=== PATIENT | female | born 1935 | race Caucasian/White ===

== ENCOUNTER 2018-12-25 16:12 | Emergency (ER) | payer MEDICARE, MEDICAID ==
[~2018-12-25] VITALS: Ht 154.9 cm; Wt 100.0 kg
[2018-12-25] MEDS ORDERED: SODIUM CHLORIDE 0.9% 1,000 ML IV ONE (16:28)
[2018-12-25] MEDS ORDERED: LORAZEPAM 0.5MG TABLET PO ONE (16:30)
[2018-12-25 19:01] LABS: BASOPHILS % 0.5 % (0.0-2.0); EOSINOPHILS % 0.8 % (0.0-5.0); HEMATOCRIT. 40.1 % (36.0-48.0); HEMOGLOBIN. 13.5 g/dL (12.0-16.0); LYMPHOCYTES % 32.9 % (20.0-50.0); MEAN CORPUSCULAR HEMOGLOBIN 33.5 pg (28.0-32.0); MEAN CORPUSCULAR VOLUME 99.3 fL (81.0-99.0); MEAN PLATELET VOLUME 7.7 fl (7.4-10.4); MONOCYTES % 12.3 % (2.0-8.0); NEUTROPHILS % 53.5 % (40.0-76.0); PLATELET 269 x1000/uL (130-400); RED BLOOD CELL COUNT 4.04 mill/uL (4.2-5.4); RED CELL DISTRIBUTION WIDTH 14.4 % (11.6-14.6)
[2018-12-25 19:13] LABS: CHLORIDE 115 mEq/L (98-107)
[2018-12-25 19:17] LABS: ETHANOL BLOOD < 10 mg/dL
[2018-12-25 19:51] LABS: CLARITY URINE CLEAR (CLEAR); COLOR URINE YELLOW (YELLOW); KETONES URINE NEGATIVE (NEGATIVE); LEUKOCYTE ESTERASE URINE TRACE (NEGATIVE); NITRITE URINE NEGATIVE (NEGATIVE); OCCULT BLOOD URINE NEGATIVE (NEGATIVE); PROTEIN URINE NEGATIVE (NEGATIVE); SPECIFIC GRAVITY URINE 1.003 (1.005-1.030); UROBILINOGEN URINE 0.2 E.U./dL (0.2-1.0)
[2018-12-25 20:14] LABS: *AMPHETAMINES SCREEN URINE NEGATIVE (NEGATIVE); *BARBITURATES SCREEN URINE NEGATIVE (NEGATIVE); *BENZODIAZEPINES SCREEN URINE NEGATIVE (NEGATIVE); *COCAINE SCREEN URINE NEGATIVE (NEGATIVE); METHADONE URINE SCREEN NEGATIVE (NEGATIVE)
[2018-12-25 20:15] LABS: CANNABINOID URINE SCREEN NEGATIVE (NEGATIVE); OPIATES URINE SCREEN NEGATIVE (NEGATIVE)
[2018-12-25 20:17] LABS: PHENCYCLIDINE URINE SCREEN NEGATIVE (NEGATIVE)
[2018-12-25 20:30] VITALS: BP 173/67
== END 2018-12-25 20:44 | disposition home or self-care (01) ==
LOC: ER 16:12
DX: F41.1 Generalized anxiety disorder (principal); I10 Essential (primary) hypertension; E78.00 Pure hypercholesterolemia, unspecified; E05.90 Thyrotoxicosis, unspecified without thyrotoxic crisis or storm
CPT/HCPCS: 36415; 71045; 80053; 80305; 80320; 81003; 84443; 85025; 93005; 99284; J7030; G0480

== ENCOUNTER 2021-11-23 00:17 | Emergency (ER) | payer MEDICARE, MEDICAID ==
[~2021-11-23] VITALS: Ht 162.6 cm; Wt 55.0 kg
[~2021-11-23 00:17] MED LIST: LEVO250T74 PO; TOPUD PO
[2021-11-23] MEDS ORDERED: BACITRACIN ZINC OINT UDPKT TOP ONE (00:30)
[2021-11-23] MEDS ORDERED: TETANUS, DIPHTHERIA, PERTUSSIS VAC/PF 0.5ML (>10YR OLD) IM ONE (00:30)
[2021-11-23] MEDS ORDERED: LIDOCAINE HCL/PF 1% 10 MG/ML 5ML VIAL INFIL ONE (00:30)
[2021-11-23 05:05] VITALS: BP 114/68
== END 2021-11-23 05:05 | disposition home or self-care (01) ==
LOC: ER 00:17
DX: S01.81XA Laceration without foreign body of other part of head, initial encounter (principal); W18.39XA Other fall on same level, initial encounter; Y93.89 Activity, other specified; Y92.89 Other specified places as the place of occurrence of the external cause; Y99.8 Other external cause status; M25.551 Pain in right hip; F03.90 Unspecified dementia, unspecified severity, without behavioral disturbance, psychotic disturbance, mood disturbance, and anxiety; E11.9 Type 2 diabetes mellitus without complications; E78.00 Pure hypercholesterolemia, unspecified; I10 Essential (primary) hypertension; E05.90 Thyrotoxicosis, unspecified without thyrotoxic crisis or storm
CPT/HCPCS: 12011; 70450; 72125; 72170; 73562; 90471; 90715; 99284; J3490

== ENCOUNTER 2021-11-28 13:35 | Emergency (ER) | payer MEDICARE, MEDICAID ==
[~2021-11-28] VITALS: Ht 157.5 cm; Wt 75.0 kg
[~2021-11-28 13:35] MED LIST changes: +LEVO250T43 PO; -LEVO250T74 PO
[2021-11-28 13:42] VITALS: BP 134/63
== END 2021-11-28 16:13 | disposition left against medical advice (07) ==
LOC: ER 13:35
DX: Z53.21 Procedure and treatment not carried out due to patient leaving prior to being seen by health care provider (principal)

== ENCOUNTER 2022-04-15 21:39 | Emergency (ER) | payer MEDICARE, MEDICAID ==
[~2022-04-15] VITALS: Ht 154.9 cm; Wt 67.0 kg
[~2022-04-15 21:39] MED LIST changes: -LEVO250T43 PO; +LEVO250T74 PO
[2022-04-15 21:43] VITALS: BP 135/82
== END 2022-04-16 03:05 | disposition left against medical advice (07) ==
LOC: ER 21:39
DX: R09.89 Other specified symptoms and signs involving the circulatory and respiratory systems (principal); I10 Essential (primary) hypertension; E11.9 Type 2 diabetes mellitus without complications; F03.90 Unspecified dementia, unspecified severity, without behavioral disturbance, psychotic disturbance, mood disturbance, and anxiety; E78.00 Pure hypercholesterolemia, unspecified; E05.90 Thyrotoxicosis, unspecified without thyrotoxic crisis or storm
CPT/HCPCS: 70490; 71250; 99284

== ENCOUNTER 2023-12-05 02:07 | Inpatient (IN) | payer MEDICARE, MEDICAID ==
[~2023-12-05] VITALS: Ht 147.3 cm; Wt 60.8 kg
[~2023-12-05 02:07] MED LIST changes: -LEVO250T74 PO; +SULF1TAB48 PO
[2023-12-05 02:45] LABS: BASOPHILS % 0.6 % (0.0-2.0); EOSINOPHILS % 1.2 % (0.0-5.0); HEMATOCRIT. 42.2 % (36.0-48.0); HEMOGLOBIN. 14.2 g/dL (12.0-16.0); LYMPHOCYTES % 43.7 % (20.0-50.0); MEAN CORPUSCULAR HEMOGLOBIN 31.9 pg (28.0-32.0); MEAN CORPUSCULAR HGB CONC 33.7 g/dL (31.0-37.0); MEAN CORPUSCULAR VOLUME 94.7 fL (81.0-99.0); MEAN PLATELET VOLUME 7.3 fl (7.4-10.4); MONOCYTES % 10.3 % (2.0-8.0); NEUTROPHILS % 44.2 % (40.0-76.0); PLATELET 371 x1000/uL (130-400); RED BLOOD CELL COUNT 4.45 mill/uL (4.2-5.4); RED CELL DISTRIBUTION WIDTH 13.6 % (11.6-14.6); WHITE BLOOD COUNT 11.5 x1000/uL (4.5-11.0)
[2023-12-05 02:49] LABS: CHLORIDE 103 mEq/L (98-107); POTASSIUM 4.1 mEq/L (3.5-5.1); SODIUM 136 mEq/L (136-145)
[2023-12-05 02:50] LABS: CALCIUM 9.1 mg/dL (8.7-10.4); CARBON DIOXIDE 27 mEq/L (21-32)
[2023-12-05 02:53] LABS: INR 0.9; PROTHROMBIN TIME 10.3 sec (9.6-11.0)
[2023-12-05 02:55] LABS: CREATININE 0.8 mg/dL (0.6-1.0); GLUCOSE 263 mg/dL (70-105); UREA NITROGEN BLOOD 19 mg/dL (9-23)
[2023-12-05 02:56] LABS: LACTIC ACID 2.5 mmol/L (0.4-2.0)
[2023-12-05 03:08] LABS: CLARITY URINE CLEAR (CLEAR); COLOR URINE YELLOW (YELLOW); GLUCOSE URINE 1+ (NEGATIVE); KETONES URINE NEGATIVE (NEGATIVE); LEUKOCYTE ESTERASE URINE NEGATIVE (NEGATIVE); NITRITE URINE NEGATIVE (NEGATIVE); OCCULT BLOOD URINE NEGATIVE (NEGATIVE); PH URINE 7.5 (4.5-8.0); PROTEIN URINE NEGATIVE (NEGATIVE); SPECIFIC GRAVITY URINE 1.008 (1.005-1.030); UROBILINOGEN URINE 0.2 E.U./dL (0.2-1.0)
[2023-12-05 03:17] LABS: TROPONIN I HIGH SENSITIVITY < 4 ng/L (3.0-34)
[2023-12-05] MEDS: SODIUM CHLORIDE 0.9% 1000ML BAG (SEPSIS BOLUS) IV ONE (03:22)
[2023-12-05] MEDS: ACETAMINOPHEN 325MG TABLET PO STA (03:23)
[2023-12-05] MEDS ORDERED: VANCOMYCIN 1000MG/250ML 250 ML IV SCH (03:30)
[2023-12-05] MEDS: CEFTRIAXONE 1GM/50ML 50 ML IV ONE ×2 (03:40→06:04)
[2023-12-05 03:42] LABS: WBC URINE 0-2 /hpf (0-2)
[2023-12-05 03:43] LABS: BACTERIA URINE NONE SEEN; RBC URINE 0-2 /hpf (0-2); SQUAMOUS EPITHELIAL CELL URINE NONE SEEN /lpf (RARE/1+)
[2023-12-05] MEDS: VANCOMYCIN 1G PREMIX 200 ML IV NR (04:04)
[2023-12-05 05:16] LABS: AMMONIA < 17 uMol/L (<32)
[2023-12-05] MEDS ORDERED: ACETAMINOPHEN 325MG TABLET PO PRN ×2 (12:15)
[2023-12-05] MEDS ORDERED: ONDANSETRON HCL 4MG/2ML INJ IV PRN (12:15)
[2023-12-05] MEDS ORDERED: IPRATROPIUM/ALBUTEROL 0.5-3(2.5)MG/3ML NEB HHN PRN (12:15)
[2023-12-05] MEDS ORDERED: DOCUSATE SODIUM 100MG CAPSULE PO PRN (12:15)
[2023-12-05] MEDS ORDERED: CLONIDINE 0.1MG TABLET PO PRN (12:15)
[2023-12-05] MEDS ORDERED: DEXTROSE 50% WATER 50ML SYRINGE IV PRN (12:15)
[2023-12-05 12:46] LABS: T4 FREE 1.22 ng/dL (0.89-1.76)
[2023-12-05 13:00] VITALS: BP 91/33; PULSE 88; RESP 18; TEMP 36.89184; O2SAT 97
[2023-12-05] MEDS: BLOOD SUGAR DIAGNOSTIC STRIP TEST SCH (13:20)
[2023-12-05] MEDS: INSULIN LISPRO 100 UNITS/ML SUBCUT SCH (13:22)
[2023-12-05 13:31] VITALS: BP 91/33; PULSE 88; RESP 18; TEMP 36.9184
[2023-12-05] MEDS ORDERED: ATOR10TA69 PO (13:37)
[2023-12-05] MEDS ORDERED: INSU100V43 SQ (13:37)
[2023-12-05 16:00] VITALS: BP 108/43; PULSE 89; RESP 20; TEMP 37.00296; O2SAT 97
[2023-12-05 18:42] LABS: FOLIC ACID (FOLATE) SERUM > 20.00 ng/mL (>5.38); VITAMIN B12 SERUM 1080 pg/mL (211-911)
[2023-12-05 20:14] VITALS: PULSE 90; RESP 18; TEMP 37.05852; O2SAT 95
[2023-12-05] MEDS: ATORVASTATIN CALCIUM 10MG TABLET PO SCH (21:04)
[2023-12-06 00:44] VITALS: PULSE 88; RESP 18; TEMP 37.00296; O2SAT 96
[2023-12-06 04:16] VITALS: PULSE 87; RESP 18; TEMP 36.44736; O2SAT 95
[2023-12-06 07:06] LABS: CHLORIDE 107 mEq/L (98-107); SODIUM 140 mEq/L (136-145)
[2023-12-06 07:07] LABS: CALCIUM 8.7 mg/dL (8.7-10.4); CARBON DIOXIDE 25 mEq/L (21-32)
[2023-12-06 07:12] LABS: CREATININE 0.7 mg/dL (0.6-1.0); GLUCOSE 161 mg/dL (70-105); UREA NITROGEN BLOOD 13 mg/dL (9-23)
[2023-12-06 07:13] LABS: ALANINE AMINOTRANSFERASE 8 IU/L (10-49); ASPARTATE AMINOTRANSFERASE 13 IU/L (<34)
[2023-12-06 07:14] LABS: ALBUMIN 3.4 g/dL (3.2-4.8); BILIRUBIN TOTAL 0.8 mg/dL (0.1-1.0); PROTEIN TOTAL 6.1 g/dL (6.0-8.3)
[2023-12-06 07:35] LABS: BASOPHILS % 0.5 % (0.0-2.0); EOSINOPHILS % 1.3 % (0.0-5.0); HEMOGLOBIN. 13.2 g/dL (12.0-16.0); LYMPHOCYTES % 30.9 % (20.0-50.0); MEAN CORPUSCULAR HEMOGLOBIN 31.7 pg (28.0-32.0); MEAN CORPUSCULAR VOLUME 96.1 fL (81.0-99.0); MEAN PLATELET VOLUME 7.7 fl (7.4-10.4); MONOCYTES % 10.4 % (2.0-8.0); NEUTROPHILS % 56.9 % (40.0-76.0); PLATELET 348 x1000/uL (130-400); RED BLOOD CELL COUNT 4.16 mill/uL (4.2-5.4); RED CELL DISTRIBUTION WIDTH 13.5 % (11.6-14.6); WHITE BLOOD COUNT 11.8 x1000/uL (4.5-11.0)
[2023-12-06 08:00] VITALS: BP 118/59; PULSE 98; RESP 20; TEMP 36.89184; O2SAT 100
[2023-12-06 12:00] VITALS: BP 123/59; PULSE 79; RESP 18; TEMP 36.50292; O2SAT 97
[2023-12-06 16:00] VITALS: BP 115/54; PULSE 76; RESP 18; TEMP 36.72516; O2SAT 95
[2023-12-06 20:00] VITALS: BP 117/55; PULSE 77; RESP 18; TEMP 35.66952; O2SAT 97
[2023-12-07] VITALS: BP 112/54; PULSE 72; RESP 16; TEMP 36.00288; O2SAT 96
[2023-12-07 04:00] VITALS: BP_SYST 110; BP_SYST 117; BP_DIAS 52; BP_DIAS 58; PULSE 66; PULSE 77; RESP 18; TEMP 36.114; TEMP 36.22512; O2SAT 98; O2SAT 99
[2023-12-07 08:00] VITALS: BP 113/59; PULSE 97; RESP 18; TEMP 36.50292; O2SAT 97
[2023-12-07] MEDS: LEVOTHYROXINE SODIUM 25MCG TABLET PO SCH (08:33)
[2023-12-07 12:00] VITALS: BP 116/65; PULSE 87; RESP 18; TEMP 36.50292; O2SAT 97
[2023-12-07 15:39] VITALS: BP 116/65; PULSE 87; TEMP 97.7; O2SAT 97
== END 2023-12-07 18:22 | disposition home health service (06) | DRG 52 ==
LOC: ER 02:07 → EDBEDREQ 04:07 → EDBEDREQTM 04:07 → 8WST 13:44
PROVIDERS: ADMIT Internal Medicine; ATTEND Internal Medicine
PROC: 4A00X4Z Measurement of Central Nervous Electrical Activity, External Approach (ICD-10-PCS; principal; 2023-12-06)
DX: G92.8 Other toxic encephalopathy (principal); E87.20 Acidosis, unspecified; E11.65 Type 2 diabetes mellitus with hyperglycemia; E78.00 Pure hypercholesterolemia, unspecified; E05.90 Thyrotoxicosis, unspecified without thyrotoxic crisis or storm; D72.829 Elevated white blood cell count, unspecified; Z20.822 Contact with and (suspected) exposure to COVID-19; Z79.4 Long term (current) use of insulin; Z87.440 Personal history of urinary (tract) infections
CPT/HCPCS: 36415; 70551; 71045; 80048; 80053; 81003; 82140; 82607; 82746; 82962; 83036; 83605; 83880; 84145; 84439; 84443; 84481; 84484; 85025; 87426; 93005; 95816; 97116; 97162; 99291; J0696; J1815; J3370; J7030